=== PATIENT | female | born 1940 | race Caucasian/White ===

== ENCOUNTER → 2019-01-09 | Outpatient (REF) | payer MEDICARE ==
[~2019-01-09] MED LIST: BILBERRY60 MG PO; BUPROPION HCL300 MG PO; CITALOPRAM40 MG PO; CLONAZEP ODT0.5 MG PO; ISTALOL0.5 % OP; LEVOTHYROXIN88 MC1 PO; METOPROLOL SUCC25 MG PO; MIRTAZAPINE45 MG OR; PROZAC10 MG PO; SYNTHROID PO; SYNTHROID50 MCG PO; VITAMIN D31000 UNI1 PO
== END | disposition home or self-care (01) ==
LOC: CT 09:53
PROVIDERS: ATTEND Otolaryngology
DX: J32.2 Chronic ethmoidal sinusitis (principal); J32.0 Chronic maxillary sinusitis

== ENCOUNTER 2021-07-24 17:26 | Emergency (ER) | payer MEDICARE ==
[~2021-07-24] VITALS: Ht 162.6 cm; Wt 70.0 kg
[2021-07-24 18:25] LABS: HEMATOCRIT 41.1 % (37.0-47.0); HEMOGLOBIN 13.3 g/dl (12.0-16.0); IMMATURE GRANULOCYTES 0.2 % (0.0-5.0); MEAN CORPUSCULAR HGB 26.9 pG CALC (26.0-32.0); MEAN CORPUSCULAR HGB CONC 32.4 g/dL CAL (32.0-36.0); NEUT# 2.38 thou/uL (2.00-7.15); RED BLOOD COUNT 4.95 mill/uL (4.20-5.60); RED CELL DISTRI WIDTH 14.3 % (11.5-15.5)
[2021-07-24 18:46] LABS: ALBUMIN 3.9 g/dL (3.2-5.0); ALKALINE PHOSPHATASE 91 u/l (38-126); ANION GAP 13 (6-22 (CALC)); BILIRUBIN, TOTAL 0.3 mg/dL (0.0-1.4); BUN 15 mg/dL (8-23); BUN/CREATININE RATIO 17 (12-20 (CALC)); C-REACTIVE PROTEIN 3.9 mg/dL (0-0.9); CARBON DIOXIDE 24 mmol/l (22-30); CHLORIDE 99 mmol/l (95-108); CREATININE 0.9 mg/dL (0.5-1.0); GFR 60 ML/MIN (>=60 (CALC)); GFR FOR AFR.AMER. > 60 ML/MIN (>=60 (CALC)); POTASSIUM 3.9 mmol/l (3.5-5.1); SGOT/AST 56 u/l (9-36)
[2021-07-24 18:50] LABS: SODIUM 132 mmol/l (137-146)
[2021-07-24 20:37] VITALS: BP 107/61
== END 2021-07-24 20:44 | disposition home or self-care (01) ==
LOC: ED 17:26
PROVIDERS: Family Medicine
DX: U07.1 COVID-19 (principal); J12.82 Pneumonia due to coronavirus disease 2019; I10 Essential (primary) hypertension
CPT/HCPCS: Q9967

== ENCOUNTER 2023-03-27 15:12 | Emergency (ER) | payer MEDICARE ==
[~2023-03-27] VITALS: Ht 162.6 cm; Wt 63.0 kg
[2023-03-27] MEDS ORDERED: LISINOPRIL2.5 MG PO (15:30)
[2023-03-27] MEDS ORDERED: KEFLEX500 MG PO (16:42)
[2023-03-27 16:48] VITALS: BP 142/81
== END 2023-03-27 16:55 | disposition home or self-care (01) ==
LOC: ED 15:12
PROC: 0HQEXZZ Repair Left Lower Arm Skin, External Approach (ICD-10-PCS; principal; 2023-03-27)
DX: S51.012A Laceration without foreign body of left elbow, initial encounter (principal); I10 Essential (primary) hypertension; F32.A Depression, unspecified; W22.09XA Striking against other stationary object, initial encounter

== ENCOUNTER 2024-05-06 15:13 | Emergency (ER) | payer MEDICARE ==
[~2024-05-06] VITALS: Ht 162.6 cm; Wt 59.0 kg
[~2024-05-06 15:13] MED LIST changes: +KEFLEX500 MG PO; +LISINOPRIL2.5 MG PO
[2024-05-06 15:38] VITALS: BP 144/86
[2024-05-06 16:00] VITALS: BP 127/80
[2024-05-06 16:30] VITALS: BP 126/65
[2024-05-06] MEDS ORDERED: PREDNISONE10 MG PO (16:37)
[2024-05-06 16:46] VITALS: BP 126/65
== END 2024-05-06 16:55 | disposition home or self-care (01) ==
LOC: ED 15:13
DX: S29.011A Strain of muscle and tendon of front wall of thorax, initial encounter (principal); I10 Essential (primary) hypertension; F32.A Depression, unspecified; X58.XXXA Exposure to other specified factors, initial encounter